=== PATIENT | female | born 1970 | race Caucasian/White ===

== ENCOUNTER 2025-02-16 09:36 | Emergency (ER) | payer OTHER ==
[~2025-02-16] VITALS: Ht 172.7 cm; Wt 113.4 kg
[2025-02-16] MEDS ORDERED: HUMULIN R500 UNIT/2 SQ (10:23)
[2025-02-16] MEDS ORDERED: PARO20 PO (10:24)
[2025-02-16] MEDS ORDERED: Diflucan150 MG PO (10:24)
[2025-02-16] MEDS ORDERED: VALA500 PO (10:24)
[2025-02-16] MEDS ORDERED: TRAZ100 PO (10:24)
[2025-02-16] MEDS ORDERED: ATOR10 PO ×2 (10:24→11:49)
[2025-02-16] MEDS ORDERED: FENO160 PO (10:24)
[2025-02-16] MEDS ORDERED: METF500C PO (10:25)
[2025-02-16] MEDS ORDERED: Lisinopril-Hct1 EAC4 PO ×2 (10:25→11:49)
[2025-02-16 10:32] LABS: BASOPHILS ABSOLUTE AUTO 0.02 K/mm3 (0.00-0.23); BASOPHILS PERCENT AUTO 0 % (0-2); EOSINOPHILS ABSOLUTE AUTO 0.02 K/mm3 (0.00-0.68); EOSINOPHILS PERCENT AUTO 0 % (0-6); Hematocrit 43.7 % (33.0-51.0); Hemoglobin 15.2 g/dL (11.5-16.0); IMMATURE GRAN ABSOLUTE AUTO 0.03 K/mm3 (0.00-0.10); IMMATURE GRAN PERCENT AUTO 1 % (0-1); LYMPHOCYTES ABSOLUTE AUTO 2.44 K/mm3 (0.84-5.20); LYMPHOCYTES PERCENT AUTO 43 % (21-46); MONOCYTES ABSOLUTE AUTO 0.37 K/mm3 (0.16-1.47); MONOCYTES PERCENT AUTO 7 % (4-13); Mean Corpuscular HGB Conc 34.8 g/dL (31.5-36.5); Mean Corpuscular Volume 81 fL (80-100); NEUTROPHILS ABSOLUTE AUTO 2.84 K/mm3 (1.96-9.15); NEUTROPHILS PERCENT AUTO 50 % (41-73); NRBC ABSOLUTE 0.00 K/mm3 (0.00-0.02); NRBC Auto 0.0 /100 WBC (0.0-0.2); Platelet Count 273 K/mm3 (150-400); RDW Coefficient Variation 13.5 % (11.7-14.2); RDW Standard Deviation 39.4 fL (35.1-46.3)
[2025-02-16] MEDS ORDERED: NS 1,000 ML IV SCH (10:35)
[2025-02-16 10:38] LABS: Source, Urine Clean Catch
[2025-02-16 10:40] LABS: pH Blood Venous 7.34 (7.34-7.37)
[2025-02-16 10:43] LABS: Bilirubin, Urine Neg (Neg); Color, Urine Yellow (P-Yellow); Glucose Qualitative, Urine 4+ (Neg); Ketones, Urine 3+ (Neg); Leukocyte Esterase, Urine Neg (Neg); Protein, Urine 1+ (Neg); Specific Gravity, Urine 1.015 (1.003-1.022); Urobilinogen, Urine NORM (Normal)
[2025-02-16 11:27] LABS: Alanine Aminotransfer (ALT/SGP 38.0 U/L (12-78); Albumin, Blood 3.6 g/dL (3.4-5.0); Albumin/Globulin Ratio 0.7 (0.8-1.8); Anion Gap 12.0 mmol/L (3-11); Aspartate Aminotrans (AST/SGOT 42.0 U/L (12-37); Bilirubin, Total 0.8 mg/dL (0.1-1.0); Blood Urea Nitrogen 14.0 mg/dL (8-24); CO2, Blood 24.0 mmol/L (21-32); Calcium, Blood 8.0 mg/dL (8.5-10.1); Chloride, Blood 96.0 mmol/L (98-108); Creatinine, Blood 0.55 mg/dL (0.40-1.00); Globulin, Blood 5.3 g/dL (2.2-4.0); Glucose, Blood 429.0 mg/dL (70-99); Potassium, Blood 4.4 mmol/L (3.5-5.5); Total Protein, Blood 8.9 g/dL (6.4-8.2)
[2025-02-16 11:28] LABS: Sodium, Blood 128.0 mmol/L (136-145)
[2025-02-16] MEDS ORDERED: Insulin Regular 100 Unit/ML 1ML Dose IV ONE (11:40)
[2025-02-16] MEDS ORDERED: METF500 PO (11:49)
[2025-02-16] MEDS ORDERED: HUMULIN R500 UNIT/2 SC (11:49)
== END 2025-02-16 13:18 | disposition home or self-care (01) ==
LOC: ER 09:36
PROVIDERS: Emergency Medicine
DX: E11.65 Type 2 diabetes mellitus with hyperglycemia (principal); I10 Essential (primary) hypertension; E78.5 Hyperlipidemia, unspecified; Z88.2 Allergy status to sulfonamides; Z88.1 Allergy status to other antibiotic agents; Z76.0 Encounter for issue of repeat prescription
CPT/HCPCS: 80053; 82803; 82947; 85025; 96360; 99284-25; J1815; J7030